=== PATIENT | female | born 1975 | race Caucasian/White ===

== ENCOUNTER 2017-04-17 08:41 | Emergency (ER) | payer MEDICAID, OTHER ==
[~2017-04-17] VITALS: Ht 165.1 cm; Wt 146.0 kg
[2017-04-17] MEDS ORDERED: KETOROLAC 60MG/2ML VIAL IM ONE (11:30)
[2017-04-17 11:59] VITALS: BP 125/70
== END 2017-04-17 12:13 | disposition home or self-care (01) ==
LOC: ER 12:12
DX: M19.90 Unspecified osteoarthritis, unspecified site (principal); G89.29 Other chronic pain; M54.40 Lumbago with sciatica, unspecified side
CPT/HCPCS: 81025; 96372; 99283; J1885; Z7610

== ENCOUNTER 2017-09-10 15:58 | Emergency (ER) | payer MEDICAID ==
[~2017-09-10] VITALS: Ht 162.6 cm; Wt 145.0 kg
[2017-09-10 21:48] VITALS: BP 144/69
== END 2017-09-10 21:49 | disposition home or self-care (01) ==
LOC: ER 16:53
DX: J06.9 Acute upper respiratory infection, unspecified (principal); Z98.51 Tubal ligation status; Z98.890 Other specified postprocedural states
CPT/HCPCS: 71045; 81025; 87804; 99285